=== PATIENT | female | born 1985 | race African-American/Black ===

== ENCOUNTER 2019-12-14 15:29 | Emergency (ER) | payer BC, MEDICAID ==
[2019-12-14 15:35] VITALS: BP 136/98
--- NOTE | 2019-12-14 15:48 | ER Document Report ---
HPI - HPI Time Seen by Provider: 12/14/19 15:37 Onset: Other - This 34-year-old female presents to the emergency room today stating she had a cough cold congestion which is been ongoing for approximately 4 days associated with sinus pressure and fullness. She does smoke and drink alcohol. Pain Level: Denies Associated Symptoms: None, Sinus pain/drainage Exacerbated by: Coughing - REPRODUCTIVE Reproductive: DENIES: : Past Medical History - General Information source: Patient - Social History Smoking Status: Never Smoker Chew tobacco use (# tins/day): No Frequency of alcohol use: Occasional Drug Abuse: None Family History: None Patient has suicidal ideation: No Patient has homicidal ideation: No Vertical Provider Document - CONSTITUTIONAL Agree With Documented VS: Yes - INFECTION CONTROL TRAVEL OUTSIDE OF THE [place] IN LAST 30 DAYS: No - NECK Neck: Normal Inspection - RESPIRATORY Respiratory: Breath Sounds Normal - GI/ABDOMEN Gastrointestinal: Abdomen Soft - REPRODUCTIVE Female Genitalia: Normal Inspection - BACK Back: Normal Inspection - NEURO Level of Consciousness: Awake, Alert Course - Vital Signs Vital signs: Temp Pulse Resp BP Pulse Ox 98.7 F 116 H 18 136/98 H 97 12/14/19 15:34 12/14/19 15:34 12/14/19 15:34 12/14/19 15:34 12/14/19 15:34 Discharge - Discharge Clinical Impression: Reactive airway disease Qualifiers: Asthma severity: severe Asthma persistence: persistent Asthma complication type: with status asthmaticus Qualified Code(s): J45.52 - Severe persistent asthma with status asthmaticus Disposition: HOME, SELF-CARE Instructions: Reactive Airway Disease ([facility]) Additional Instructions: Increase fluid intake rest. Follow-up with PMD in 3 to 4 days. Tylenol Motrin for aches and pains. Prescriptions: Amoxicillin/Potassium Clav [Augmentin 875-125 Tablet] 1 tab PO Q12 #20 tablet Prednisone [Deltasone 20 mg Tablet] 3 tab PO DAILY 5 Days #15 tablet Referrals: RUSSELL MELENDEZ [Primary Care Provider] - Follow up as needed
== END 2019-12-14 15:56 | disposition left against medical advice (07) ==
LOC: ER 15:29
DX: J45.52 Severe persistent asthma with status asthmaticus (principal); R05 Cough; R09.81 Nasal congestion; F17.200 Nicotine dependence, unspecified, uncomplicated
CPT/HCPCS: 99283

== ENCOUNTER 2020-02-02 17:24 | Emergency (ER) | payer SELFPAY ==
[2020-02-02] MEDS ORDERED: NORMAL SALINE 1000 ML 1,000 ML IV ONE (17:40)
--- NOTE | 2020-02-02 17:40 | ER Document Report ---
ED Medical Screen (RME) - General Chief Complaint: Chest Pain > 30 Stated Complaint: SHAKY/NAUSEOUS/WEAKNESS/LEFT ARM NUMBNESS Time Seen by Provider: 02/02/20 17:34 Mode of Arrival: Ambulatory Information source: Patient Notes: 34-year-old female presents to ED for complaint of shakiness with sweats and steady on her feet no appetite times a week. She states she drinks half to a whole liter bottle of wine every day and then today when she woke up she was having chest pain radiating down her left arm. She states she became very scared with that and came into the emergency room. She states she would have come into the emergency room anyway eventually due to her decreased appetite unsteady on her feet and not feeling right. She states does not smoke or use any illicit drugs. Patient is alert oriented respirations regular nonlabored speaking in full sentences at this time. I have greeted and performed a rapid initial assessment of this patient. A comprehensive ED assessment and evaluation of the patient, analysis of test results and completion of medical decision making process will be conducted by an additional ED providers. TRAVEL OUTSIDE OF THE [place] IN LAST 30 DAYS: No - Related Data Allergies/Adverse Reactions: acetaminophen [From Percocet] Allergy (Verified 12/14/19 15:37) oxycodone [From Percocet] Allergy (Verified 12/14/19 15:37)
[2020-02-02] MEDS ORDERED: ONDANSETRON HCL INJ/PF 4 MG/2 ML SDV IV ONE (17:45)
--- NOTE | 2020-02-02 18:08 | ER Document Report ---
ED Cardiac - General Chief Complaint: Chest Tightness Stated Complaint: SHAKY/NAUSEOUS/WEAKNESS/LEFT ARM NUMBNESS Time Seen by Provider: 02/02/20 17:34 Mode of Arrival: Ambulatory Information source: Patient Notes: SARA HPI: 34-year-old female presents to ED for complaint of shakiness with sweats and steady on her feet no appetite times a week. She states she drinks half to a whole liter bottle of wine every day and then today when she woke up she was having chest pain radiating down her left arm. She states she became very scared with that and came into the emergency room. She states she would have come into the emergency room anyway eventually due to her decreased appetite unsteady on her feet and not feeling right. She states does not smoke or use any illicit drugs. Patient is alert oriented respirations regular nonlabored speaking in full sentences at this time. Patient also adds that she used to take depression and anxiety medications up until a few months ago, she stopped taking them abruptly. Patient reports that she thinks she may need to get started on some anxiety medicine, she believes most of her symptoms are related to anxiety of recently moving here and not having a job. TRAVEL OUTSIDE OF THE [place] IN LAST 30 DAYS: No - Related Data Allergies/Adverse Reactions: acetaminophen [From Percocet] Allergy (Verified 12/14/19 15:37) oxycodone [From Percocet] Allergy (Verified 12/14/19 15:37) Past Medical History - General Information source: Patient - Social History Smoking Status: Never Smoker Frequency of alcohol use: Heavy Family History: None Patient has homicidal ideation: No Psychiatric Medical History: Reports: Hx Anxiety, Hx Depression Surgical Hx: Negative Review of Systems - Review of Systems Constitutional: No symptoms reported EENT: No symptoms reported Cardiovascular: See HPI Respiratory: No symptoms reported Gastrointestinal: See HPI Genitourinary: No symptoms reported Female Genitourinary: No symptoms reported Musculoskeletal: See HPI Skin: No symptoms reported Hematologic/Lymphatic: No symptoms reported Neurological/Psychological: See HPI Physical Exam - Vital signs Vitals: Temp Pulse BP Pulse Ox 98.9 F 77 163/90 H 98 02/02/20 17:29 02/02/20 17:29 02/02/20 17:29 02/02/20 17:29 - Notes Notes: PHYSICAL EXAMINATION: GENERAL: Well-appearing, well-nourished and in no acute distress. HEAD: Atraumatic, normocephalic. EYES: Pupils equal round and reactive to light, extraocular movements intact, conjunctiva are normal. ENT: Nares patent, oropharynx clear without exudates. Moist mucous membranes. NECK: Normal range of motion, supple without lymphadenopathy LUNGS: Breath sounds clear to auscultation bilaterally and equal. No wheezes rales or rhonchi. HEART: Regular rate and rhythm without murmurs ABDOMEN: Soft, nontender, nondistended abdomen. No guarding, no rebound. No masses appreciated. Female : deferred Musculoskeletal: Normal range of motion, no pitting or edema. No cyanosis. NEUROLOGICAL: Cranial nerves grossly intact. Normal speech, normal gait. Normal sensory, motor exams PSYCH: Normal mood, normal affect. SKIN: Warm, Dry, normal turgor, no rashes or lesions noted. Course - Re-evaluation Re-evalutation: Laboratory 02/02/20 02/02/20 02/02/20 18:12 18:12 18:12 WBC 2.3 L RBC 4.27 Hgb 13.6 Hct 39.9 MCV 94 MCH 31.9 MCHC 34.1 RDW 14.7 H Plt Count 132 L Lymph % (Auto) 34.1 Edwards % (Auto) 6.5 Eos % (Auto) 0.1 Baso % (Auto) 0.8 Absolute Neuts (auto) 1.3 L Absolute Lymphs (auto) 0.8 Absolute Monos (auto) 0.1 Absolute Eos (auto) 0.0 Absolute Basos (auto) 0.0 Seg Neutrophils % 58.5 Sodium 134.2 L Potassium 3.7 Chloride 98 Carbon Dioxide 26 Anion Gap 10 BUN 8 Creatinine 0.50 L Est GFR ( Amer) > 60 Est GFR (MDRD) Non-Af > 60 Glucose 152 H Calcium 9.8 Total Bilirubin 0.9 Direct Bilirubin 0.0 Neonat Total Bilirubin Not Reportable Neonat Direct Bilirubin Not Reportable Neonat Indirect Bili Not Reportable AST 207 H ALT 75 H Alkaline Phosphatase 50 Troponin I < 0.012 Total Protein 8.0 Albumin 4.8 Lipase 120.4 Urine Color Urine Appearance Urine pH Ur Specific [place] Urine Protein Urine Glucose (UA) Urine Ketones Urine Blood Urine Nitrite (Reflex) Urine Bilirubin Urine Urobilinogen Leukocyte Esterase Rfl Urine RBC (Auto) Urine WBC (Reflex) Squamous Epi Cells Auto Amorphous Sediment Auto Urine Mucus (Auto) Urine Ascorbic Acid Urine HCG, Qual Urine Opiates Screen Urine Methadone Screen Acetaminophen < 10 L Ur Barbiturates Screen Ur Phencyclidine Scrn Ur Amphetamines Screen U Benzodiazepines Scrn Urine Cocaine Screen U Marijuana (THC) Screen Serum Alcohol < 10 02/02/20 02/02/20 02/02/20 18:12 18:12 18:12 WBC RBC Hgb Hct MCV MCH MCHC RDW Plt Count Lymph % (Auto) Edwards % (Auto) Eos % (Auto) Baso % (Auto) Absolute Neuts (auto) Absolute Lymphs (auto) Absolute Monos (auto) Absolute Eos (auto) Absolute Basos (auto) Seg Neutrophils % Sodium Potassium Chloride Carbon Dioxide Anion Gap BUN Creatinine Est GFR ( Amer) Est GFR (MDRD) Non-Af Glucose Calcium Total Bilirubin Direct Bilirubin Neonat Total Bilirubin Neonat Direct Bilirubin Neonat Indirect Bili AST ALT Alkaline Phosphatase Troponin I Total Protein Albumin Lipase Urine Color SHNO Urine Appearance CLOUDY Urine pH 6.0 Ur Specific [place] 1.029 Urine Protein 100 H Urine Glucose (UA) NEGATIVE Urine Ketones 20 H Urine Blood NEGATIVE Urine Nitrite (Reflex) NEGATIVE Urine Bilirubin NEGATIVE Urine Urobilinogen NEGATIVE Leukocyte Esterase Rfl NEGATIVE Urine RBC (Auto) 2 Urine WBC (Reflex) 1 Squamous Epi Cells Auto 19 Amorphous Sediment Auto TRACE Urine Mucus (Auto) MANY Urine Ascorbic Acid 40 H Urine HCG, Qual NEGATIVE Urine Opiates Screen NEGATIVE Urine Methadone Screen NEGATIVE Acetaminophen Ur Barbiturates Screen NEGATIVE Ur Phencyclidine Scrn NEGATIVE Ur Amphetamines Screen NEGATIVE U Benzodiazepines Scrn NEGATIVE Urine Cocaine Screen NEGATIVE U Marijuana (THC) Screen NEGATIVE Serum Alcohol Chest X-Ray 02/02/20 17:39 IMPRESSION: NO ACUTE RADIOGRAPHIC FINDING IN THE CHEST. Patient's work-up today has been unremarkable. Chest x-ray negative. Labs are reassuring. Troponin negative. EKG shows a sinus rhythm, normal axis, no ST segment elevations or depressions to suggest ischemia. 02/02/20 21:47 Mental health team has also met with the patient, they have made medication recommendations. Patient is in agreements with this plan. Patient will be discharged home at this time. - Vital Signs Vital signs: Temp Pulse Resp BP Pulse Ox 98.9 F 77 13 139/99 H 100 02/02/20 17:41 02/02/20 17:29 02/02/20 20:01 02/02/20 20:01 02/02/20 20:01 - Laboratory Result Diagrams: 02/02/20 18:12 02/02/20 18:12 Laboratory results interpreted by me: 02/02/20 02/02/20 02/02/20 18:12 18:12 18:12 WBC 2.3 L RDW 14.7 H Plt Count 132 L Absolute Neuts (auto) 1.3 L Sodium 134.2 L Creatinine 0.50 L Glucose 152 H AST 207 H ALT 75 H Urine Protein 100 H Urine Ketones 20 H Urine Ascorbic Acid 40 H Acetaminophen < 10 L Discharge - Discharge Clinical Impression: Anxiety Condition: Stable Disposition: HOME, SELF-CARE Additional Instructions: Your medical work-up today was reassuring. We do believe some your symptoms are coming from alcohol use as well as anxiety. Per the recommendation of our mental health team we are starting you on Haldol, Cogentin and Effexor. Please start taking the Haldol and Cogentin tomorrow. Get the Effexor filled if you can afford it. Follow-up with the resources that the mental health team gave you, make an appointment with them for medication management within the next 2 weeks. Return to the emergency department with any new or worsening symptoms. Prescriptions: Benztropine Mesylate [Cogentin 1 mg Tablet] 1 mg PO DAILY #14 tablet Venlafaxine HCl ER [Effexor Xr 37.5 mg Cap.sr] 37.5 mg PO DAILY #14 cap.sr.24h Haloperidol [Haldol 5 mg Tablet] 5 mg PO BID #28 tablet
--- NOTE | 2020-02-02 18:25 | RADIOLOGY REPORT (SQ) ---
EXAM DESCRIPTION: CHEST 2 VIEWS IMAGES COMPLETED DATE/TIME: 02/02/2020 5:07 pm REASON FOR STUDY: chest pain radiates down left arm COMPARISON: None. EXAM PARAMETERS: NUMBER OF VIEWS: two views TECHNIQUE: Digital Frontal and Lateral radiographic views of the chest acquired. RADIATION DOSE: NA LIMITATIONS: none FINDINGS: LUNGS AND PLEURA: No opacities, masses or pneumothorax. No pleural effusion. MEDIASTINUM AND HILAR STRUCTURES: No masses or contour abnormalities. HEART AND VASCULAR STRUCTURES: Heart normal size. No evidence for failure. BONES: No acute findings. HARDWARE: None in the chest. OTHER: No other significant finding. IMPRESSION: NO ACUTE RADIOGRAPHIC FINDING IN THE CHEST. TECHNICAL DOCUMENTATION: JOB ID: [id number] 2010 [email or web address]- All Rights Reserved Reading location - IP/workstation name: [email or web address]
[2020-02-02 18:38] LABS: ABSOLUTE LYMPHOCYTES (AUTO) 0.8 10^3/uL (0.5-4.7); ABSOLUTE MONOCYTES (AUTO) 0.1 10^3/uL (0.1-1.4); ABSOLUTE NEUT (AUTO) 1.3 10^3/uL (1.7-8.2); BASOPHILS % (AUTO) 0.8 % (0-2); EOSINOPHILS % (AUTO) 0.1 % (0-6); HEMATOCRIT 39.9 % (36.0-47.0); HEMOGLOBIN 13.6 g/dL (12.0-15.5); LYMPHOCYTES % (AUTO) 34.1 % (13-45); MEAN CORPUSCULAR HEMOGLOBIN 31.9 pg (27.0-33.4); MEAN CORPUSCULAR HGB CONC 34.1 g/dL (32.0-36.0); MEAN CORPUSCULAR VOLUME 94 fl (80-97); MONOCYTES % (AUTO) 6.5 % (3-13); PLATELET COUNT 132 10^3/uL (150-450); RED BLOOD COUNT 4.27 10^6/uL (3.72-5.28); RED CELL DISTRIBUTION WIDTH 14.7 % (11.5-14.0); SEGMENTED NEUTROPHILS % (AUTO) 58.5 % (42-78); TOTAL CELLS COUNTED % (AUTO) 100 %; WHITE BLOOD COUNT 2.3 10^3/uL (4.0-10.5)
[2020-02-02 18:50] LABS: AMORPHOUS SEDIMENT,URINE TRACE /HPF; APPEARANCE,URINE CLOUDY; BILIRUBIN,URINE NEGATIVE (NEGATIVE); COLOR,URINE AMBER; GLUCOSE, URINE NEGATIVE (NEGATIVE); KETONES,URINE 20 mg/dL (NEGATIVE); PROTEIN,URINE 100 mg/dL (NEGATIVE); URINE SPECIFIC GRAVITY 1.029; UROBILINOGEN,URINE NEGATIVE mg/dL (<2.0)
[2020-02-02 18:55] LABS: ACETAMINOPHEN < 10 ug/mL (10-30); ALBUMIN 4.8 g/dL (3.5-5.0); ALCOHOL < 10 mg/dL (NONE DETECTED); ALKALINE PHOSPHATASE 50 U/L (38-126); ANION GAP 10 (5-19); ASPARTATE AMINO TRANSFERASE 207 U/L (14-36); BILIRUBIN,TOTAL 0.9 mg/dL (0.2-1.3); BLOOD UREA NITROGEN 8 mg/dL (7-20); CALCIUM 9.8 mg/dL (8.4-10.2); CARBON DIOXIDE 26 mmol/L (22-30); CHLORIDE 98 mmol/L (98-107); GLUCOSE 152 mg/dL (75-110); POTASSIUM 3.7 mmol/L (3.6-5.0)
[2020-02-02 18:58] LABS: URINE AMPHETAMINES SCREEN NEGATIVE; URINE BARBITURATES SCREEN NEGATIVE; URINE BENZODIAZEPINES SCREEN NEGATIVE; URINE COCAINE SCREEN NEGATIVE; URINE MARIJUANA (THC) SCREEN NEGATIVE; URINE METHADONE SCREEN NEGATIVE; URINE PHENCYCLIDINE SCREEN NEGATIVE
--- NOTE | 2020-02-02 20:39 | EKG REPORT ---
SEVERITY:- NORMAL ECG - SINUS RHYTHM : Confirmed by: Lili Koehler MD 02-Feb-2020 20:38:57
[2020-02-02] MEDS ORDERED: KETOROLAC TROMETHAMINE INJ/PF 30 MG/1 ML SDV IV ONE (21:11)
[2020-02-02] MEDS ORDERED: BENZTROPINE MESYLATE 1 MG TABLET PO ONE (21:43)
[2020-02-02] MEDS ORDERED: HALOPERIDOL 5 MG TABLET PO ONE (21:43)
[2020-02-02 22:02] VITALS: BP 138/88
== END 2020-02-02 22:13 | disposition home or self-care (01) ==
LOC: ER 17:24
DX: F41.9 Anxiety disorder, unspecified (principal); F32.9 Major depressive disorder, single episode, unspecified; R63.0 Anorexia; R61 Generalized hyperhidrosis; R07.89 Other chest pain; Z56.0 Unemployment, unspecified; Z88.6 Allergy status to analgesic agent; Z88.5 Allergy status to narcotic agent
CPT/HCPCS: 93005; 99284; 96361; 96374; 96375; 36415; 80307 ×3; 83690; 85025; 81025; 80053; 81001; 84484; 71046; 93010; J1885; J2405; J7030

== ENCOUNTER 2020-02-04 19:49 | Emergency (ER) | payer SELFPAY ==
[2020-02-04] MEDS ORDERED: NORMAL SALINE 1000 ML 1,000 ML IV ONE ×2 (19:59→20:39)
--- NOTE | 2020-02-04 20:05 | ER Document Report ---
ED Medical Screen (RME) - General Chief Complaint: ETOH Abuse Stated Complaint: JAW PAIN Time Seen by Provider: 02/04/20 19:59 Mode of Arrival: Wheelchair Information source: Patient Notes: 34-year-old female presented to ED because today her jaw feels like it is locking up because she normally drinks half a bottle of wine today she only had a fourth of a bottle of wine today because she ran out. She states she had her last drink was about an hour or 2 ago. She states now she feels like her jaw is locking up because she has not had enough alcohol today. She is alert oriented respirations regular nonlabored speaking in full sentences. She does look anxious. There are no obvious tremors noted at this time. I have greeted and performed a rapid initial assessment of this patient. A comprehensive ED assessment and evaluation of the patient, analysis of test results and completion of medical decision making process will be conducted by an additional ED providers. TRAVEL OUTSIDE OF THE [place] IN LAST 30 DAYS: No - Related Data Allergies/Adverse Reactions: acetaminophen [From Percocet] Allergy (Verified 02/04/20 19:55) oxycodone [From Percocet] Allergy (Verified 02/04/20 19:55) Past Medical History Psychiatric Medical History: Reports: Hx Anxiety, Hx Depression Physical Exam - Vital signs Vitals: Temp Pulse Resp BP Pulse Ox 97.5 F 148 H 25 H 151/104 H 98 02/04/20 19:53 02/04/20 19:53 02/04/20 19:53 02/04/20 19:53 02/04/20 19:53 Course - Vital Signs Vital signs: Temp Pulse Resp BP Pulse Ox 97.5 F 148 H 26 H 144/83 H 99 02/04/20 19:55 02/04/20 19:53 02/04/20 20:39 02/04/20 20:39 02/04/20 20:39 - Laboratory Result Diagrams: 02/04/20 20:22 02/04/20 20:22
[2020-02-04] MEDS ORDERED: DIPHENHYDRAMINE HCL 50 MG/ML VIAL IV ONE (20:37)
[2020-02-04] MEDS ORDERED: LORAZEPAM INJ 2 MG/1 ML VIAL IV ONE (20:38)
[2020-02-04 20:47] LABS: ABSOLUTE LYMPHOCYTES (AUTO) 1.6 10^3/uL (0.5-4.7); ABSOLUTE MONOCYTES (AUTO) 0.3 10^3/uL (0.1-1.4); ABSOLUTE NEUT (AUTO) 1.6 10^3/uL (1.7-8.2); BASOPHILS % (AUTO) 0.5 % (0-2); EOSINOPHILS % (AUTO) 0.3 % (0-6); HEMATOCRIT 38.5 % (36.0-47.0); HEMOGLOBIN 13.2 g/dL (12.0-15.5); MEAN CORPUSCULAR HEMOGLOBIN 32.3 pg (27.0-33.4); MEAN CORPUSCULAR HGB CONC 34.2 g/dL (32.0-36.0); MEAN CORPUSCULAR VOLUME 94 fl (80-97); MONOCYTES % (AUTO) 8.7 % (3-13); PLATELET COUNT 121 10^3/uL (150-450); RED BLOOD COUNT 4.07 10^6/uL (3.72-5.28); SEGMENTED NEUTROPHILS % (AUTO) 45.5 % (42-78); TOTAL CELLS COUNTED % (AUTO) 100 %; WHITE BLOOD COUNT 3.5 10^3/uL (4.0-10.5)
[2020-02-04 21:02] LABS: ALBUMIN 4.9 g/dL (3.5-5.0); ALKALINE PHOSPHATASE 35 U/L (38-126); ANION GAP 14 (5-19); ASPARTATE AMINO TRANSFERASE 139 U/L (14-36); BILIRUBIN,TOTAL 0.8 mg/dL (0.2-1.3); BLOOD UREA NITROGEN 11 mg/dL (7-20); CALCIUM 9.8 mg/dL (8.4-10.2); CARBON DIOXIDE 20 mmol/L (22-30); CHLORIDE 98 mmol/L (98-107); GLUCOSE 139 mg/dL (75-110); POTASSIUM 4.2 mmol/L (3.6-5.0)
[2020-02-04 21:04] LABS: ACETAMINOPHEN < 10 ug/mL (10-30); ALCOHOL < 10 mg/dL (NONE DETECTED)
--- NOTE | 2020-02-04 21:16 | ER Document Report ---
ED General - General Chief Complaint: ETOH Abuse Stated Complaint: JAW PAIN Time Seen by Provider: 02/04/20 19:59 Mode of Arrival: Wheelchair Information source: Patient TRAVEL OUTSIDE OF THE [place] IN LAST 30 DAYS: No - HPI Onset: Just prior to arrival Onset/Duration: Gradual Severity: Severe Pain Level: 2 Associated symptoms: Other - patient cannot stop shaking Exacerbated by: Denies Relieved by: Denies Similar symptoms previously: Yes - with anxiety and alcohol withdrawal Recently seen / treated by doctor: Yes - patient seen in the ER on 02/02/20 and s tarted on Haldol, Cogentin, Effexor Notes: 34 year old female Alcoholic (drinks about a bottle of wine a day) with a history of Anxiety and Depression here in the ER for persistent shaking of her arms and legs. The patient says she feels very anxious and nervous. The patient was seen in the ER on 02/02/20 and started of Haldol, Cogentin, Effexor. The patient says she drinks about a bottle of wine a day and today she only drank half a bottle. The patient is not sure if she has ever had withdrawal from alcohol in the past. - Related Data Allergies/Adverse Reactions: acetaminophen [From Percocet] Allergy (Verified 02/04/20 19:55) oxycodone [From Percocet] Allergy (Verified 02/04/20 19:55) Past Medical History - General Information source: Patient - Social History Smoking Status: Former Smoker Frequency of alcohol use: Heavy - daily Drug Abuse: None Family History: Reviewed & Not Pertinent Patient has suicidal ideation: No Patient has homicidal ideation: No Psychiatric Medical History: Reports: Hx Anxiety, Hx Depression - anxiety Review of Systems - Review of Systems Constitutional: No symptoms reported EENT: No symptoms reported Cardiovascular: No symptoms reported Respiratory: No symptoms reported Gastrointestinal: No symptoms reported Genitourinary: No symptoms reported Female Genitourinary: No symptoms reported Musculoskeletal: No symptoms reported Skin: No symptoms reported Hematologic/Lymphatic: No symptoms reported Neurological/Psychological: Anxiety, Tremor, Other - shaky -: Yes All other systems reviewed and negative Physical Exam - Vital signs Vitals: Temp Pulse Resp BP Pulse Ox 97.5 F 148 H 25 H 151/104 H 98 02/04/20 19:53 02/04/20 19:53 02/04/20 19:53 02/04/20 19:53 02/04/20 19:53 - Notes Notes: GENERAL: Anxious, shaking, well-nourished and in mild acute distress. HEAD: Atraumatic, normocephalic. EYES: Pupils equal round and reactive to light, extraocular movements intact, sclera anicteric, conjunctiva are normal. ENT: External ears normal, nares patent, oropharynx clear without exudates. Moist mucous membranes. NECK: Normal range of motion, supple without lymphadenopathy or JVD. LUNGS: Breath sounds clear to auscultation bilaterally and equal. No wheezes rales or rhonchi. HEART: Regular rate and rhythm without murmurs, rubs or gallops. ABDOMEN: Soft, nontender, normoactive bowel sounds. No guarding, no rebound. No masses appreciated. EXTREMITIES: Normal range of motion, no pitting or edema. No clubbing or cyanosis. NEUROLOGICAL: Shaking arms and legs, Cranial nerves II through XII grossly intact. Normal speech, normal gait. PSYCH: Anxious, normal affect. SKIN: Warm, Dry, normal turgor, no rashes or lesions noted. Course - Re-evaluation Re-evalutation: 02/04/20 23:53 The patient arrived tachycardic and tremulous. She was recently started on Haldol, Cogentin, and Effexor. Patient is a daily drinker but her alcohol level was zero in the ER. Either the patient was having a dystonic reaction or she was going through mild alcohol withdrawal. Patient was treated with Benadryl 25mg IV, Ativan 1mg IV, and fluids and her shaking stopped and heart rate normalized. Patient told to follow up with outpatient mental health and a PCP. - Vital Signs Vital signs: Temp Pulse Resp BP Pulse Ox 97.5 F 148 H 32 H 136/78 H 100 02/04/20 19:55 02/04/20 19:53 02/04/20 23:00 02/04/20 22:00 02/04/20 22:01 - Laboratory Result Diagrams: 02/04/20 20:22 02/04/20 20:22 Laboratory results interpreted by me: 02/04/20 02/04/20 02/04/20 20:22 20:22 22:45 WBC 3.5 L Plt Count 121 L Absolute Neuts (auto) 1.6 L Sodium 132.1 L Carbon Dioxide 20 L Glucose 139 H AST 139 H ALT 67 H Alkaline Phosphatase 35 L Urine Ketones TRACE H Acetaminophen < 10 L - EKG Interpretation by Me EKG shows normal: Sinus rhythm, [place], Intervals, QRS Complexes, ST-T Waves Rate: Normal Rhythm: NSR Discharge - Discharge Clinical Impression: Dystonia, Anxiety Condition: Stable Disposition: HOME, SELF-CARE Instructions: Alcohol Withdrawl ([facility]), Dystonic Reaction to Medication ([facility]) Additional Instructions: Follow up with outpatient mental health and with a primary care doctor. If you dont have a primary care doctor, you can follow up with Dr. Mackay or in the [facility]. Tell your doctors about your ER visit for shakiness today. You could have had dystonia from your recently prescribed medications or you could have had mild alcohol withdrawal.
[2020-02-04] MEDS ORDERED: ONDANSETRON HCL INJ/PF 4 MG/2 ML SDV IV ONE (22:07)
[2020-02-04 23:09] LABS: APPEARANCE,URINE CLEAR; BILIRUBIN,URINE NEGATIVE (NEGATIVE); COLOR,URINE YELLOW; GLUCOSE, URINE NEGATIVE (NEGATIVE); KETONES,URINE TRACE mg/dL (NEGATIVE); PROTEIN,URINE NEGATIVE (NEGATIVE); URINE SPECIFIC GRAVITY 1.006; UROBILINOGEN,URINE NEGATIVE mg/dL (<2.0)
[2020-02-04 23:30] LABS: URINE AMPHETAMINES SCREEN NEGATIVE; URINE BARBITURATES SCREEN NEGATIVE; URINE BENZODIAZEPINES SCREEN NEGATIVE; URINE COCAINE SCREEN NEGATIVE; URINE MARIJUANA (THC) SCREEN NEGATIVE; URINE METHADONE SCREEN NEGATIVE; URINE PHENCYCLIDINE SCREEN NEGATIVE
[2020-02-05 00:06] VITALS: BP 134/84
--- NOTE | 2020-02-05 07:52 | EKG REPORT ---
SEVERITY:- NORMAL ECG - SINUS RHYTHM : Confirmed by: Valeriy Chu MD 05-Feb-2020 07:51:50
== END 2020-02-05 00:07 | disposition home or self-care (01) ==
LOC: ER 19:49
DX: G24.9 Dystonia, unspecified (principal); F41.9 Anxiety disorder, unspecified; R68.84 Jaw pain; Z88.6 Allergy status to analgesic agent
CPT/HCPCS: 93005; 99285; 96361; 96374; 96375; 36415; 80307 ×3; 83690; 84703; 85025; 80053; 81001; 93010; J1200; J2060; J2405; J7030

== ENCOUNTER 2020-02-15 10:10 | Emergency (ER) | payer SELFPAY ==
[2020-02-15 10:15] VITALS: BP 116/74
--- NOTE | 2020-02-15 10:23 | ER Document Report ---
HPI - HPI Time Seen by Provider: 02/15/20 10:15 Notes: 34-year-old female patient presented to the emergency department with request for medication refill. Patient reports she was seen here 2 weeks ago, prescribed mental health medications. She states that she is in the process of getting her Medicaid approved so that she can see a mental health provider. She denies any physical complaints today. Denies any suicidal homicidal ideations. - REPRODUCTIVE Reproductive: DENIES: : Past Medical History - General Information source: Patient - Social History Smoking Status: Current Every Day Smoker - Electronic vaping device Frequency of alcohol use: Occasional Drug Abuse: None Lives with: Alone Family History: Reviewed & Not Pertinent Psychiatric Medical History: Reports: Hx Anxiety, Hx Bipolar Disorder, Hx D epression - anxiety Surgical Hx: Negative - Immunizations Immunizations up to date: Yes Vertical Provider Document - CONSTITUTIONAL Notes: PHYSICAL EXAMINATION: GENERAL: Well-appearing, well-nourished and in no acute distress. HEAD: Atraumatic, normocephalic. EYES: Pupils equal round extraocular movements intact, conjunctiva are normal. ENT: Nares patent NECK: Normal range of motion LUNGS: No respiratory distress Musculoskeletal: Normal range of motion NEUROLOGICAL: Normal speech, normal gait. PSYCH: Normal mood, normal affect. Calm, cooperative. SKIN: Warm, Dry, normal turgor, no rashes or lesions noted. - INFECTION CONTROL TRAVEL OUTSIDE OF THE [place] IN LAST 30 DAYS: No Course - Re-evaluation Re-evalutation: 02/15/20 10:26 Patient calm, cooperative, requesting medication refill. She states that the medications we prescribed her 2 weeks ago were working very well. She only has 1 day left. She states she has been trying to get approved for Medicaid and also trying to get approved for services through [facility] and the [facility] although she is still pending approval. She denies any suicidal homicidal ideations. Medications will be refilled for 30 days. Encourage patient to please follow-up with mental health medication management provider. - Vital Signs Vital signs: Temp Pulse Resp BP Pulse Ox 98.0 F 78 14 116/74 98 02/15/20 10:14 02/15/20 10:14 02/15/20 10:14 02/15/20 10:14 02/15/20 10:14 Discharge - Discharge Clinical Impression: Medication refill Condition: Stable Disposition: HOME, SELF-CARE Additional Instructions: You were seen in the emergency department today for medication refill. I refilled your medications for 30 days. We would really like you to get into see a primary care provider and a mental health provider for medication management. I have given you a few numbers below that may be able to see you. Please return to the emergency department for any new or life-threatening complaints. Prescriptions: Benztropine Mesylate [Cogentin 1 mg Tablet] 1 tab PO DAILY #30 tab Venlafaxine HCl ER [Effexor Xr 37.5 mg Cap.sr] 37.5 mg PO DAILY #30 cap.sr.24h Haloperidol [Haldol 5 mg Tablet] 5 mg PO BID #60 tablet Referrals: CECELIA FRITZ MD [NO LOCAL MD] - Follow up as needed [facility] [Provider Group] - Follow up as needed PARTH ROBISON MD [COMMUNITY BASED STAFF] - Follow up as needed
== END 2020-02-15 10:26 | disposition home or self-care (01) ==
LOC: ER 10:10
DX: Z76.0 Encounter for issue of repeat prescription (principal)
CPT/HCPCS: 99281

== ENCOUNTER 2020-03-19 10:24 | Emergency (ER) | payer OTHER ==
[2020-03-19 11:35] LABS: INTERNATIONAL RATION (INR) 1.06; PROTHROMBIN TIME 13.8 SEC (11.4-15.4)
[2020-03-19 11:39] LABS: ALBUMIN 4.6 g/dL (3.5-5.0); ALCOHOL 197 mg/dL (NONE DETECTED); ALKALINE PHOSPHATASE 39 U/L (38-126); ANION GAP 12 (5-19); ASPARTATE AMINO TRANSFERASE 83 U/L (14-36); BILIRUBIN,TOTAL 0.4 mg/dL (0.2-1.3); BLOOD UREA NITROGEN 13 mg/dL (7-20); CALCIUM 9.6 mg/dL (8.4-10.2); CARBON DIOXIDE 25 mmol/L (22-30); CHLORIDE 104 mmol/L (98-107); GLUCOSE 109 mg/dL (75-110); POTASSIUM 3.9 mmol/L (3.6-5.0); TOTAL PROTEIN 7.8 g/dL (6.3-8.2)
[2020-03-19 11:40] LABS: APPEARANCE,URINE CLOUDY; BILIRUBIN,URINE NEGATIVE (NEGATIVE); COLOR,URINE YELLOW; GLUCOSE, URINE NEGATIVE (NEGATIVE); KETONES,URINE TRACE mg/dL (NEGATIVE); LEUKOCYTE ESTERASE,URINE MODERATE (NEGATIVE); NITRITE,URINE NEGATIVE (NEGATIVE); PROTEIN,URINE 30 mg/dL (NEGATIVE); URINE SPECIFIC GRAVITY 1.026; UROBILINOGEN,URINE NEGATIVE mg/dL (<2.0)
[2020-03-19 11:50] LABS: ABSOLUTE LYMPHOCYTES (AUTO) 2.8 10^3/uL (0.5-4.7); ABSOLUTE MONOCYTES (AUTO) 0.3 10^3/uL (0.1-1.4); ABSOLUTE NEUT (AUTO) 1.7 10^3/uL (1.7-8.2); BASOPHILS % (AUTO) 0.4 % (0-2); EOSINOPHILS % (AUTO) 0.2 % (0-6); HEMATOCRIT 42.5 % (36.0-47.0); HEMOGLOBIN 14.5 g/dL (12.0-15.5); LYMPHOCYTES % (AUTO) 58.7 % (13-45); MEAN CORPUSCULAR HEMOGLOBIN 31.6 pg (27.0-33.4); MEAN CORPUSCULAR HGB CONC 34.2 g/dL (32.0-36.0); MEAN CORPUSCULAR VOLUME 93 fl (80-97); MONOCYTES % (AUTO) 6.1 % (3-13); PLATELET COUNT 319 10^3/uL (150-450); RED BLOOD COUNT 4.59 10^6/uL (3.72-5.28); RED CELL DISTRIBUTION WIDTH 12.5 % (11.5-14.0); SEGMENTED NEUTROPHILS % (AUTO) 34.6 % (42-78); TOTAL CELLS COUNTED % (AUTO) 100 %; WHITE BLOOD COUNT 4.8 10^3/uL (4.0-10.5)
[2020-03-19] MEDS ORDERED: NORMAL SALINE 1000 ML 1,000 ML IV ONE ×2 (13:29→16:42)
[2020-03-19] MEDS ORDERED: CEFTRIAXONE 1 GM/D5W RTU 1 GM/50 ML RTUPB IV ONE (13:29)
[2020-03-19] MEDS ORDERED: LORAZEPAM INJ 2 MG/1 ML VIAL IV ONE (13:33)
--- NOTE | 2020-03-19 13:36 | ER Document Report ---
ED Substance Abuse / Acc. OD - General Chief Complaint: Alcohol Withdrawl Stated Complaint: SHORT OF BREATH,SHAKY Time Seen by Provider: 03/19/20 13:15 Notes: Patient is a 35-year-old female who presents emergency department with a chief complaint of tremors. Patient reports that she drinks alcohol daily. Patient reports yesterday she had multiple shots of liquor and 2 beers. Patient reports this morning waking up around 9 AM and feeling very shaky and jittery. Patient states that she took a few sips of beer at that time to see if that would help with her symptoms. Patient reported vomiting once last night. Patient reports she does have history of anxiety, depression and panic attacks. Patient was recently started on Cogentin, Haldol and Effexor within the past 2 months. Patient reports she has not followed up with another provider to have these medications refilled and only has a few days left. Patient denies SI or HI. Patient admits to using ecstasy yesterday around 4 PM. TRAVEL OUTSIDE OF THE [place] IN LAST 30 DAYS: No - Related Data Allergies/Adverse Reactions: acetaminophen [From Percocet] Allergy (Verified 02/04/20 19:55) oxycodone [From Percocet] Allergy (Verified 02/04/20 19:55) Home Medications: effoxor, haldol, cogentin Past Medical History - General Information source: Patient - Social History Smoking Status: Current Every Day Smoker Frequency of alcohol use: Heavy Drug Abuse: None Lives with: Family Family History: Reviewed & Not Pertinent Patient has homicidal ideation: No - Past Medical History Cardiac Medical History: Reports: None Pulmonary Medical History: Reports: None EENT Medical History: Reports: None Neurological Medical History: Reports: None Endocrine Medical History: Reports: None Renal/ Medical History: Reports: None Malignancy Medical History: Reports: None GI Medical History: Reports: None Musculoskeletal Medical History: Reports None Skin Medical History: Reports None Psychiatric Medical History: Reports: Hx Anxiety, Hx Bipolar Disorder, Hx Depression - anxiety Traumatic Medical History: Reports: None Infectious Medical History: Reports: None Surgical Hx: Negative - Immunizations Immunizations up to date: Yes Review of Systems - Review of Systems Constitutional: No symptoms reported EENT: No symptoms reported Cardiovascular: No symptoms reported Respiratory: No symptoms reported Gastrointestinal: See HPI Genitourinary: No symptoms reported Female Genitourinary: No symptoms reported Musculoskeletal: No symptoms reported Skin: No symptoms reported Hematologic/Lymphatic: No symptoms reported Neurological/Psychological: See HPI Physical Exam - Vital signs Vitals: Temp 98.6 F 03/19/20 10:50 - Notes Notes: GENERAL: Well-nourished, non toxic, visible hand tremors noted. HEAD: Atraumatic, normocephalic. EYES: Pupils equal round and reactive to light, extraocular movements intact, sclera anicteric, conjunctiva are normal. ENT: Nares patent, oropharynx clear without exudates. Moist mucous membranes. NECK: Normal range of motion, supple without lymphadenopathy or JVD. LUNGS: Breath sounds clear to auscultation bilaterally and equal. No wheezes rales or rhonchi. HEART: Regular rate and rhythm without murmurs, rubs or gallops. ABDOMEN: Soft, nontender, normoactive bowel sounds. No guarding, no rebound. No masses appreciated. BACK: No cervical, thoracic, lumbar midline tenderness. No saddle anesthesia, normal distal neurovascular exam. GENITOURINARY: Deferred. EXTREMITIES: Normal range of motion, no pitting or edema. No clubbing or cyanosis. NEUROLOGICAL: Cranial nerves II through XII grossly intact. Normal speech, normal gait. PSYCH: Normal mood, normal affect. SKIN: Warm, Dry, normal turgor, no rashes or lesions noted. Course - Re-evaluation Re-evalutation: 03/19/20 13:38 A urine drug screen. We will give the patient IV fluids, a dose of Ativan as she did have a positive response with this medication 1 month ago for tremors and possible withdrawal. Was also noted that the patient had moderate l eukocytes within her urine, will give a dose of IV Rocephin. Denies hx. seizures or admission to hospital for alcohol abuse/withdrawal. 03/19/20 15:19 Patient resting comfortably on stretcher in no acute distress. Patient's tremors have resolved. Patient reports she does not have a primary care physician and does lack insurance. Patient reports she does have her Haldol and Cogentin but is about to run out of her Effexor and is requesting a refill. Did provide the patient with a list of places that she can follow-up to have her psychiatric meds refilled. 03/19/20 17:41 Prior to discharge patient started to exhibit bilateral hand tremors and walked out to the nurses station. This was not present moments before. Patient reports she feels like she is withdrawing. Patient states last time she was here the medication she received did help with her symptoms. Will give another liter of fluid as well as Benadryl. Patient is not tachycardic, hypotensive or hypertensive. 03/19/20 18:39 At time of discharge patient asking if she can stay overnight in sleep. She did ask the nursing staff this. Patient was discharged. Patient was in no acute distress and did ambulate with a steady gait. Patient symptoms had improved. - Vital Signs Vital signs: Temp Pulse Resp BP Pulse Ox 98.6 F 98 18 116/81 98 03/19/20 10:50 03/19/20 15:50 03/19/20 15:50 03/19/20 15:50 03/19/20 15:50 - Laboratory Result Diagrams: 03/19/20 10:49 03/19/20 10:49 Laboratory results interpreted by me: 03/19/20 03/19/20 03/19/20 10:49 10:49 10:49 Lymph % (Auto) 58.7 H Seg Neutrophils % 34.6 L AST 83 H Urine Protein 30 H Urine Ketones TRACE H Ur Leukocyte Esterase MODERATE H Urine Ascorbic Acid 40 H Discharge - Discharge Clinical Impression: Anxiety Urinary tract infection Qualifiers: Urinary tract infection type: site unspecified Hematuria presence: with hematuria Qualified Code(s): N39.0 - Urinary tract infection, site not specified Depression Qualifiers: Depression Type: unspecified Qualified Code(s): F32.9 - Major depressive disorder, single episode, unspecified Condition: Stable Disposition: HOME, SELF-CARE Additional Instructions: *Today are seen in the emergency department for tremors and alcohol abuse. We have given you fluids your symptoms have improved. I have provided you with detox and substance abuse clinics in the area as well as community outpatient referral list for mental health. Is very important that you follow-up with these resources in the community so they can refill your psychiatric medications such as Cogentin, Haldol and Effexor. The emergency department cannot keep refilling your prescriptions as this does need to be monitored by the same physician. Please return to the emergency department if you develop any new or worsening symptoms. You are also diagnosed with urinary tract infection. I prescribed you Keflex. Take this as ordered. Alcohol Withdrawal Your symptoms are caused by alcohol withdrawal. After a period of frequent drinking, the brain and body are changed by the alcohol. When you quit or reduce your drinking, the nervous system becomes unstable. Withdrawal symptoms can start a few hours after your last drink, but sometimes don't begin until a couple of days later. Symptoms can include shakiness, sweating, insomnia, nausea, vomiting, fearfulness, hallucinations, and seizures. In addition to the acute effects of alcohol withdrawal, we often have to deal with the medical effects of alcoholism. These problems often include dehydration, stomach irritation, intestinal bleeding, low blood sugar, liver disease, and pancreas inflammation. Treatment for alcohol withdrawal includes mild sedatives, vitamins, and fluids. You need to be with someone who can help if symptoms become severe. Many patients can withdraw at home. Admission to the hospital or a detox facility may be necessary if withdrawal symptoms are severe and uncontrollable. Abstaining from alcohol is the only effective long-term treatment. If you start drinking again, you will not be able to control yourself after the first drink. Treatment programs are available. In addition, many alcoholics benefit from Alcoholics Anonymous or other support groups available through your counselor or [employer]oroastrian[employer] nitrocellulose maker. [employer] and [employer] are support groups for friends and family members of an alcoholic. Go to the emergency room if you develop persistent vomiting, severe abdominal pain, fever, shortness of breath, hallucinations, uncontrollable tremors, or seizures. Urinary Tract Infection Your evaluation indicates that you have a urinary tract infection. This is due to germs growing in the bladder. This is a common problem. This infection usually responds quickly to antibiotics. Your antibiotic should be taken exactly as prescribed. Drink plenty of fluids -- three to four quarts a day. Occasionally, a bladder anesthetic will be prescribed to help stop the feeling of urgency until the antibiotic has a chance to clear the infection. This may cause your urine to be dark orange. Certain urine infections require a culture. If the doctor obtained a culture, the results will be back in two days. You should call to see if a change in treatment is needed. A repeat urinalysis after you finish treatment is often recommended. The physician will let you know if further testing is required. Call the doctor if you develop fever, chills, flank pain, inability to urinate, or blood in the urine. Prescriptions: Cephalexin Monohydrate [Keflex 500 mg Capsule] 500 mg PO BID 5 Days #10 capsule
[2020-03-19 14:21] LABS: URINE BARBITURATES SCREEN NEGATIVE; URINE BENZODIAZEPINES SCREEN NEGATIVE; URINE COCAINE SCREEN NEGATIVE; URINE MARIJUANA (THC) SCREEN NEGATIVE; URINE METHADONE SCREEN NEGATIVE; URINE PHENCYCLIDINE SCREEN NEGATIVE
[2020-03-19 14:23] LABS: URINE AMPHETAMINES SCREEN UNCONFIRMED POSITIVE
[2020-03-19 16:12] VITALS: BP 116/81
[2020-03-19] MEDS ORDERED: DIPHENHYDRAMINE HCL 50 MG/ML VIAL IV ONE (16:42)
== END 2020-03-19 18:50 | disposition home or self-care (01) ==
LOC: ER 10:24
DX: F41.9 Anxiety disorder, unspecified (principal); N39.0 Urinary tract infection, site not specified; R31.9 Hematuria, unspecified; F32.9 Major depressive disorder, single episode, unspecified; R25.1 Tremor, unspecified; F41.0 Panic disorder [episodic paroxysmal anxiety]; Z79.899 Other long term (current) drug therapy; F17.200 Nicotine dependence, unspecified, uncomplicated; Z88.6 Allergy status to analgesic agent; Z88.5 Allergy status to narcotic agent
CPT/HCPCS: 99284; 96361; 96375; 96365; 36415; 87040; 80307 ×2; 85025; 85610; 81025; 80053; 81001; J1200; J2060; J7030; J0696